=== PATIENT | female | born 1970 | race Caucasian/White ===

== ENCOUNTER 2024-03-23 15:26 | Emergency (ER) | payer BC ==
[2024-03-23 16:17] LABS: Anion Gap 14 mmol/L (10-20); BUN (Urea Nitrogen) 28 mg/dL (9.8-20.1); Calc. Creatinine Clearance 0 mL/min (70-130); Carbon Dioxide 22 mmol/L (22-29); Chloride 107 mmol/L (98-107); Estimated GFR 93; Glucose 112 mg/dL (70-105); Potassium 3.9 mmol/L (3.5-5.1); Sodium 139 mmol/L (136-145)
[2024-03-23 16:22] LABS: Eosinophils 3 % (0-10); Hematocrit 39.1 % (36.0-47.0); Lymphocytes 22 % (21-51); MDiff Complete? YES; Mean Corpuscular HGB CONC 33.1 g/dL (32.0-36.0); Mean Corpuscular Hemoglobin 28.9 pg (27.0-31.0); Mean Corpuscular Volume 87.1 fl (78.0-98.0); Mean Platelet Volume 6.6 fL (7.4-10.4); Monocytes 3 % (0-10); Neutrophil 71 % (42-75); Platelet Adequacy Comment Appears Adequate; Platelet Count 333 10x3/uL (130-400); RBC Distribution Width 12.8 % (11.5-14.5); Red Blood Cell (RBC) Count 4.49 mill/uL (4.20-5.40); White Blood Cell (WBC) Count 9.8 10x3/uL (4.8-10.8)
[2024-03-23 17:30] LABS: Bilirubin Negative (Negative); Blood, Urine Negative (Negative); Clarity Clear (Clear); Glucose, Urine (Dipstick) Negative (Negative); Ketone, Urine Negative (Negative); Leukocyte Negative (Negative); Nitrite Negative (Negative); Protein, Urine (Dipstick) Negative (Neg-Trace); Urobilinogen 0.2 mg/dL (Less than 2); pH, Urine 6.5 (5.0-9.0)
[2024-03-23 17:34] LABS: Specific Gravity, Urine 1.005 (1.002-1.036)
[2024-03-23 17:37] LABS: Amphetamine Not Detected (NotDetected); Barbiturates Screen Not Detected (NotDetected); Benzodiazepine Screen Not Detected (NotDetected); Cocaine Metabolite Screen Not Detected (NotDetected); Methadone Not Detected (NotDetected); Methamphetamine Not Detected (NotDetected); Opiate Screen Not Detected (NotDetected); Oxycodone Screen Not Detected (NotDetected); Phencyclidine (PCP) Not Detected (NotDetected); THC/Cannabinoid Screen Not Detected (NotDetected); Tricyclic Screen Not Detected (NotDetected)
[2024-03-23 17:39] LABS: Bacteria/HPF 1+ HPF (None Seen); CAUTI Indications for Culture Alt mental st,lethar; RBC/HPF 0-3 HPF (0-3); Squamous Epithelial 0-3 HPF (0-3); WBC/HPF 0-3 HPF (0-3)
[2024-03-23 17:40] LABS: Urine Culture Reflex No No
== END 2024-03-23 18:29 | disposition home or self-care (01) ==
LOC: MADERS 15:26
DX: F29 Unspecified psychosis not due to a substance or known physiological condition (principal)
CPT/HCPCS: 36415; 80048; 80306; 81001; 85025; 93005; 96360

== ENCOUNTER 2024-03-29 14:35 | Emergency (ER) | payer BC ==
[2024-03-29 16:10] LABS: Hematocrit 38.7 % (36.0-47.0); Hemoglobin 12.7 g/dL (12.0-16.0); Mean Corpuscular HGB CONC 32.8 g/dL (32.0-36.0); Mean Corpuscular Hemoglobin 28.3 pg (27.0-31.0); Mean Corpuscular Volume 86.2 fl (78.0-98.0); Mean Platelet Volume 6.6 fL (7.4-10.4); Platelet Count 340 10x3/uL (130-400); RBC Distribution Width 12.3 % (11.5-14.5); Red Blood Cell (RBC) Count 4.49 mill/uL (4.20-5.40); White Blood Cell (WBC) Count 7.2 10x3/uL (4.8-10.8)
[2024-03-29 16:14] LABS: ALT (SGPT) 16 U/L (8-55); AST (SGOT) 19 U/L (5-34); Albumin 3.7 g/dL (3.5-5.0); Alkaline Phosphatase 76 U/L (40-110); Anion Gap 13 mmol/L (10-20); BUN (Urea Nitrogen) 12 mg/dL (9.8-20.1); Bilirubin, Total 0.4 mg/dL (0.2-1.2); Calc. Creatinine Clearance 0 mL/min (70-130); Calcium 9.5 mg/dL (7.8-10.44); Carbon Dioxide 25 mmol/L (22-29); Chloride 107 mmol/L (98-107); Estimated GFR 80; Globulin 3.2 g/dL (2.4-3.5); Glucose 109 mg/dL (70-105); Potassium 3.7 mmol/L (3.5-5.1); Protein, Total 6.9 g/dL (6.0-8.3); Sodium 141 mmol/L (136-145)
[2024-03-29 16:29] LABS: Band 1 % (5-11); Lymphocytes 8 % (21-51); MDiff Complete? YES; Manual Diff?? YES; Monocytes 4 % (0-10); Neutrophil 70 % (42-75); Reactive Lymphocytes 5 % (0-10)
[2024-03-29 16:30] LABS: Eosinophils 12 % (0-10); Platelet Adequacy Comment Appears Adequate; RBC Morph Comment Within Normal Limits
== END 2024-03-29 17:04 | disposition home or self-care (01) ==
LOC: MADERS 14:35
DX: E86.0 Dehydration (principal); I10 Essential (primary) hypertension; Z59.00 Homelessness unspecified
CPT/HCPCS: 80053; 85025; 93005; 96360

== ENCOUNTER 2024-04-03 11:50 | Emergency (ER) | payer BC | END 2024-04-03 12:26 | disposition home or self-care (01) | LOC: MADERS 11:50 | DX: M79.674 Pain in right toe(s) (principal); I10 Essential (primary) hypertension; F17.210 Nicotine dependence, cigarettes, uncomplicated; Z79.899 Other long term (current) drug therapy | CPT/HCPCS: 99283 ==

== ENCOUNTER 2025-02-25 09:07 | Emergency (ER) | payer BC ==
[2025-02-25] MEDS ORDERED: predniSONE 20 MG TAB ONE (09:37)
[2025-02-25] MEDS ORDERED: Ondansetron PF 4 MG/2 ML Vial ONE (09:37)
[2025-02-25 10:02] LABS: Hematocrit 45.8 % (36.0-47.0); Hemoglobin 14.8 g/dL (12.0-16.0); Mean Corpuscular Hemoglobin 26.8 pg (27.0-31.0); Mean Corpuscular Volume 83.1 fl (78.0-98.0); Platelet Count 461 10x3/uL (130-400); Red Blood Cell (RBC) Count 5.51 mill/uL (4.20-5.40); White Blood Cell (WBC) Count 11.3 10x3/uL (4.8-10.8)
[2025-02-25 10:07] LABS: ALT (SGPT) 11 U/L (Less than 34); AST (SGOT) 23 U/L (11-34); Albumin 4.3 g/dL (3.1-4.5); Alkaline Phosphatase 91 U/L (40-110); Anion Gap 15 mmol/L (10-20); BUN (Urea Nitrogen) 26 mg/dL (9.8-20.1); Bilirubin, Total 0.5 mg/dL (0.3-1.2); Calc. Creatinine Clearance 0 mL/min (70-130); Calcium 9.5 mg/dL (7.8-10.44); Carbon Dioxide 24 mmol/L (22-29); Chloride 105 mmol/L (98-107); Globulin 3.6 g/dL (2.4-3.5); Glucose 112 mg/dL (70-105); Potassium 3.9 mmol/L (3.5-5.1); Sodium 140 mmol/L (136-145)
[2025-02-25 10:14] LABS: MDiff Complete? YES; Manual Diff?? YES
[2025-02-25 10:15] LABS: Platelet Adequacy Comment Appears Increased
[2025-02-25 10:34] LABS: Acetaminophen Less than 10 mcg/mL (Less than 10); Salicylate Less than 8.0 mg/dL (Less than 8.0)
== END 2025-02-25 12:45 | disposition home or self-care (01) ==
LOC: MADERS 09:07
DX: J40 Bronchitis, not specified as acute or chronic (principal); F22 Delusional disorders; I10 Essential (primary) hypertension; F17.210 Nicotine dependence, cigarettes, uncomplicated; Z79.899 Other long term (current) drug therapy
CPT/HCPCS: 36415; 71045; 80053; 80307; 85025; 96374; J7030; J7512

== ENCOUNTER 2025-02-26 10:11 | Emergency (ER) | payer BC ==
[2025-02-26] MEDS ORDERED: Fluconazole 100 MG TAB ONE (10:24)
== END 2025-02-26 10:55 | disposition home or self-care (01) ==
LOC: MADERS 10:11
DX: B35.6 Tinea cruris (principal); I10 Essential (primary) hypertension; F17.210 Nicotine dependence, cigarettes, uncomplicated; Z59.71 Insufficient health insurance coverage; Z75.8 Other problems related to medical facilities and other health care; Z59.00 Homelessness unspecified

== ENCOUNTER 2025-04-04 10:19 | Emergency (ER) | payer BC ==
[2025-04-04] MEDS ORDERED: Acetaminophen 325 MG TAB ONE (10:29)
== END 2025-04-04 12:05 | disposition home or self-care (01) ==
LOC: MADERS 10:19
DX: S80.211A Abrasion, right knee, initial encounter (principal); I10 Essential (primary) hypertension; F17.210 Nicotine dependence, cigarettes, uncomplicated; W19.XXXA Unspecified fall, initial encounter
CPT/HCPCS: 99283